=== PATIENT | male | born 1960 | race Caucasian/White ===

== ENCOUNTER 2016-08-22 09:32 | Day surgery (SDC) | payer OTHER ==
[~2016-08-22 09:32] MED LIST: Metoclopramide 10 MG/2 ML SDV IV PRN; Sodium Chloride 0.9% 1,000 ML IV SCH; Sodium Chloride 0.9% 10 ML Syringe FLUSH PRN
[2016-08-22 12:22] VITALS: BP 101/69
--- NOTE | 2016-08-22 18:12 | OR ---
DATE OF OPERATION: 08/22/2016 PREOPERATIVE DIAGNOSIS: Screening Colonoscopy POSTOPERATIVE DIAGNOSIS: Screening Colonoscopy PROCEDURE: Colonoscopy. INDICATIONS FOR THE PROCEDURE: The patient is a 56-year-old gentleman, who presents today for a screening colonoscopy. The patient has had no blood in the stool, no change in bowel habits, no family history. He has no complaints. DESCRIPTION OF PROCEDURE: Informed consent was obtained from the patient. The patient was taken to the operating room and placed on the table in the left lateral decubitus position. Monitored anesthesia care was applied. Digital rectal exam was performed, normal sphincter tone and no palpable masses. The endoscope was passed through the anus under direct visualization and maneuvered until reaching the cecum. This was confirmed by the appendiceal orifice and ileocecal valve. Prep was good. Views were good. Cecum was unremarkable. Colonoscope was withdrawn slowly and the mucosa was carefully examined. The patient did have a small polyp in the ascending colon, which is removed with hot biopsy polypectomy. The patient did have several diverticula in the sigmoid colon. The patient's colon was otherwise normal. No inflammation, AV malformation, erosions, or ischemia. Retroflexion was performed in the rectum and was normal. Scope was withdrawn. The patient tolerated the procedure well and was brought to recovery room in good condition. FINDINGS: Ascending colon polyp and mild sigmoid diverticulosis. RECOMMENDATIONS: We will follow up biopsies and the patient should have repeat colonoscopy in five years. CHARLEY /[id number] NICOLA
== END 2016-08-22 13:30 | disposition home or self-care (01) ==
LOC: LB.SDS 09:32
PROVIDERS: ATTEND Surgery
DX: Z12.11 Encounter for screening for malignant neoplasm of colon (principal); D12.2 Benign neoplasm of ascending colon; K57.30 Diverticulosis of large intestine without perforation or abscess without bleeding; I10 Essential (primary) hypertension; E78.5 Hyperlipidemia, unspecified; Z88.8 Allergy status to other drugs, medicaments and biological substances; Z79.84 Long term (current) use of oral hypoglycemic drugs; Z79.899 Other long term (current) drug therapy; Z98.890 Other specified postprocedural states
CPT/HCPCS: 45384; 88305; 96374; J7040; J7050